=== PATIENT | female | born 1980 | race African-American/Black ===

== ENCOUNTER → 2017-12-10 | Outpatient (CLI) | payer BC ==
--- NOTE | 2017-12-17 14:47 | Pulmonary Function Test ---
DATE OF STUDY: December 17, 2017 Normal spirometry: Forced vital capacity 2.74 liters, 87% of predicted. FEV1 2.34 liters 89%. FEV1:FVC ratio 86%. [id number] 91%. Inspiratory flows appear grossly normal. There is a paradoxical decline in FEV1 following inhalation of bronchodilators of 17% of 1.95 liters, uncertain significance. Job#: [id number]
== END ==
LOC: RESP 09:09
PROVIDERS: ATTEND Internal Medicine
DX: J45.40 Moderate persistent asthma, uncomplicated (principal)
CPT/HCPCS: 94060